=== PATIENT | female | born 1935 | race Caucasian/White ===

== ENCOUNTER 2019-11-28 06:38 | Emergency (ER) | payer MEDICARE, BC ==
[2019-11-28 06:52] VITALS: BP 144/84; PULSE 68
--- NOTE | 2019-11-28 07:19 | EDM.PDOC ---
ED HPI GENERAL MEDICAL PROBLEM - General Chief Complaint: Bite:Animal, Insect Stated Complaint: TICK ON RIGHT RIB AREA Time Seen by Provider: 11/28/19 07:00 Source of Information: Reports: Patient, Old Records History Limitations: Reports: No Limitations - History of Present Illness INITIAL COMMENTS - FREE TEXT/NARRATIVE: 84 yo female presents with a deer tick attached to the lateral aspect of her R breast. She says it was not there when she went to bed. 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: Other (see below) (none) - Related Data Allergies Allergy/AdvReac Type Severity Reaction Status Date / Time diphenhydramine HCl Allergy Hives Verified 05/11/15 19:53 [From Benadryl] prednisone Allergy Hives Verified 05/11/15 19:53 Home Meds: Home Meds Alendronate [Fosamax] 70 mg PO Q7D@0600 09/21/13 [History] Fish Oil/[place]-3 Fatty Acids [Fish Oil] 1 each PO DAILY 09/21/13 [History] Latanoprost [Xalatan] 1 drop EYEBOTH BEDTIME 09/21/13 [History] Levothyroxine Sodium [Synthroid] 75 mcg PO DAILY 09/21/13 [History] Multivitamin [Multi Vitamin Daily] 1 each PO DAILY 09/21/13 [History] Timolol [Betimol 0.5% Ophth Soln] 1 drop EYEBOTH DAILY 03/15/14 [History] Pravastatin Sodium [Pravastatin (Pravachol)] 80 mg PO DAILY 05/11/15 [History] Past Medical History Cardiovascular History: Reports: High Cholesterol [employer] History: Reports: Endocrine/Metabolic History: Reports: Hypothyroidism - Infectious Disease History Infectious Disease History: Reports: Chicken Pox, Measles, Mumps Social & Family History - Tobacco Use Smoking Status *Q: Never Smoker - Caffeine Use Caffeine Use: Reports: Coffee, Soda, Tea - Recreational Drug Use Recreational Drug Use: No ED ROS GENERAL - Review of Systems Review Of Systems: See Below Constitutional: Reports: No Symptoms Skin: Reports: Erythema (at bite site) Neurological: Reports: No Symptoms ED EXAM, ANIMAL BITE - Physical Exam Exam: See Below Exam Limited By: No Limitations General Appearance: Alert, WD/WN, No Apparent Distress Neurological: Alert, Oriented, CN II-XII Intact, No Motor/Sensory Deficits Psychiatric: Normal Affect, Normal Mood Skin Exam: Normal Color, Warm/Dry, Other (deer tick attached to R lateral breast. Removal with a forceps. Area wiped with alcohol. Tick not engorged. Slight redness at site of attachment. ) Lymphadenopathy: Bilateral: No Adenopathy Lymphatic: No Adenopathy Course - Vital Signs Last Recorded V/S: Last Vital Signs Temp 35.9 C L 11/28/19 06:51 Pulse 68 11/28/19 06:51 Resp 16 11/28/19 06:51 BP 144/84 H 11/28/19 06:51 Pulse Ox 98 11/28/19 06:51 Departure - Departure Time of Disposition: 07:18 Disposition: Home, Self-Care 01 Condition: Good Clinical Impression: Dermacentor andersoni tick bite Qualifiers: Encounter type: initial encounter Qualified Code(s): W57.XXXA - Bitten or stung by nonvenomous insect and other nonvenomous arthropods, initial encounter - Discharge Information *PRESCRIPTION DRUG MONITORING PROGRAM REVIEWED*: No *COPY OF PRESCRIPTION DRUG MONITORING REPORT IN PATIENT ERA: No Instructions: Tick Bite Information, Adult, [id number] Referrals: Kris Mann MD [Primary Care Provider] - Additional Instructions: Keep area clean. Avoid scratching. Benedryl as needed for itching. F/U with Dr. Mann as needed. Sepsis Event Note - Evaluation Sepsis Screening Result: No Definite Risk - Focused Exam Vital Signs: Vital Signs Temp Pulse Resp BP Pulse Ox 11/28/19 06:51 35.9 C L 68 16 144/84 H 98 Date Exam was Performed: 11/28/19 Time Exam was Performed: 07:14
== END 2019-11-28 07:27 | disposition home or self-care (01) ==
LOC: JP.ED 06:38
DX: S20.161A Insect bite (nonvenomous) of breast, right breast, initial encounter (principal); E78.00 Pure hypercholesterolemia, unspecified; E03.9 Hypothyroidism, unspecified; Z88.8 Allergy status to other drugs, medicaments and biological substances; Z79.899 Other long term (current) drug therapy; W57.XXXA Bitten or stung by nonvenomous insect and other nonvenomous arthropods, initial encounter
CPT/HCPCS: 99282

== ENCOUNTER 2021-12-13 06:43 | Emergency (ER) | payer MEDICARE, BC ==
[2021-12-13 07:11] VITALS: BP 157/54; PULSE 68
[2021-12-13] MEDS ORDERED: Doxycycline 100 MG Cap PO ONE (07:28)
== END 2021-12-13 07:48 | disposition home or self-care (01) ==
LOC: JP.ED 06:43
DX: A69.20 Lyme disease, unspecified (principal); E78.00 Pure hypercholesterolemia, unspecified; E03.9 Hypothyroidism, unspecified; Z88.8 Allergy status to other drugs, medicaments and biological substances; Z79.899 Other long term (current) drug therapy
CPT/HCPCS: 99281; A9270-GY

== ENCOUNTER 2025-02-28 08:12 | Emergency (ER) | payer MEDICARE, BC ==
[2025-02-28 11:43] VITALS: BP 143/68; PULSE 64
== END 2025-02-28 11:35 | disposition home or self-care (01) ==
LOC: JP.ED 08:12
DX: S22.059A Unspecified fracture of T5-T6 vertebra, initial encounter for closed fracture (principal); S22.029A Unspecified fracture of second thoracic vertebra, initial encounter for closed fracture; S22.039A Unspecified fracture of third thoracic vertebra, initial encounter for closed fracture; S22.049A Unspecified fracture of fourth thoracic vertebra, initial encounter for closed fracture; I10 Essential (primary) hypertension; E78.00 Pure hypercholesterolemia, unspecified; E03.9 Hypothyroidism, unspecified; Z90.49 Acquired absence of other specified parts of digestive tract; Z88.8 Allergy status to other drugs, medicaments and biological substances; Z79.899 Other long term (current) drug therapy; W17.89XA Other fall from one level to another, initial encounter; Y93.89 Activity, other specified
CPT/HCPCS: 72146; 72146-26; 99282; 99283